=== PATIENT | male | born 1965 | race Caucasian/White ===

== ENCOUNTER 2018-10-07 13:28 | Emergency (ER) | payer OTHER ==
--- NOTE | 2018-10-07 14:19 | EDPHY ---
HPI/HX/ROS/PE/MDM Narrative: CHIEF COMPLAINT: "I fell on a rock, hit the ear." HPI: The patient is a 53 y/o male with a history of pre-diabetes and high cholesterol arriving with his son complaining of ear bleeding secondary to a fall while hiking today around 12:30. He slipped on the trail and reached out to catch himself with his hands, but also struck his left ear on a "flat rock." He had immediate bleeding and mild ear soreness, but denies other injuries. He denies LOC, head or neck pain, dizziness, weakness, paresthesias, aphasia, ear ringing, or other symptoms. He was able to hike down the rest of the trail over the next hour without issue and went to urgent care for evaluation, who referred him here. He is not on anticoagulants. His tetanus vaccination is up-to -date. REVIEW OF SYSTEMS: Aside from elements discussed in the HPI, a comprehensive 10-point review of systems was reviewed and is negative. PMH: Pre-diabetes - Metformin; hypercholesterolemia - statin SOCIAL HISTORY: Son at bedside. Visiting from [place], [place]. PHYSICAL EXAM: General:Patient is alert, in no acute distress. ENT:Eyes are normal to inspection. Left ear: complex, irregular superficial laceration to inner portion of mario of auricle is present. Not through and through. does not appear to involve cartilage. TM intact and clear. ENT inspection otherwise normal. Neck: Normal inspection. Full range of motion. Respiratory:No respiratory distress. Breath sounds normal bilaterally. Cardiovascular: Regular rate and rhythm. Strong peripheral pulses. Normal cap refill. Abdomen:The abdomen is nontender to palpation. There are no peritoneal signs. Back: Normal to inspection. No tenderness to palpation. Skin: Normal color. No rash. Warm and dry. Extremities: Normal appearance. Full range of motion. Neuro: Oriented x3. Normal motor function. Normal sensory function. ED Course: This is a 53 y/o male not on anticoagulants who presents with an isolated laceration to the inner portion of his left auricle secondary to a mechanical slip and fall today. He has a normal neuro exam and no other trauma. His left TM is intact and clear. Do not suspect basilar skull fracture. Plan for wound care and laceration repair with Dermabond. Procedure: Laceration repair. Verbal consent was obtained from the patient. The irregular 1cm laceration on the mario of the left auricle was anesthetized using topical anesthetic. The wound was cleaned with standard ED protocol. There were no deep structures involved. The wound was repaired with Dermabond. The wound repair was simple. The procedure was performed by myself, Dr. Aflredo. Patient will be discharged with standard laceration care and follow up instructions. Return precautions discussed. MDM: This patient presents essentially with laceration to ear. The laceration itself is quite irregular and located deep in the hollow of the mario, making repair via suture very difficult. I offered patient a choice of suture repair vs. dermabond repair and he has chosen the latter, which seems reasonable. We discussed risks of infection, recurrent bleeding, as well as strict return precautions and need for close monitoring of wound. I see no indication for imaging at this time, and patient has no signs of temporal bone or basilar skull fracture. At time of discharge, laceration is well-approximated and no active bleeding is seen. General Time Seen by Provider: 10/07/18 13:40 Initial Vital Signs: Initial Vital Signs Temperature (C) 36.7 C 10/07/18 13:32 Heart Rate 107 H 10/07/18 13:32 Respiratory Rate 16 10/07/18 13:32 Blood Pressure 140/88 H 10/07/18 13:32 O2 Sat (%) 94 10/07/18 13:32 O2 Delivery Mode Room Air Allergies/Adverse Reactions: Penicillins Allergy (Verified 10/07/18 13:38) bee stings Allergy (Uncoded 10/07/18 13:38) Home Medications: Medication Instructions Recorded Atorvastatin Calcium 10/07/18 Lisinopril 10/07/18 Metformin HCl 10/07/18 Departure - Departure Disposition: Home, Routine, Self-Care Clinical Impression: Laceration of ear Qualifiers: Encounter type: initial encounter Laterality: left Qualified Code(s): S01.312A - Laceration without foreign body of left ear, initial encounter Condition: Good Instructions: Laceration (ED) Additional Instructions: 1. Keep site clean and dry. Do not apply Neosporin as this will dissolve glue. Do not scrub off glue, it will naturally dissolve over the next week. 2. If bleeding returns, apply direct pressure for 15 minutes. 3. Follow up with your primary care provider as needed. 4. Return to the ED for severe headache, weakness, numbness, vision changes, speech difficulty, fever, significant increase in redness or pus drainage at the site, or other worsening of condition. Referrals: Jackson Cooper MD [Medical Doctor] - As per Instructions Report Scribed for: Estuardo Alfredo Report Scribed by: Alexandra Day Date of Report: 10/07/18 Time of Report: 14:19 Physician Review and Approval Statement: Portions of this note were transcribed by an ED scribe. I personally performed the history, physical exam, and medical decision making; and confirm the accuracy of the information in the transcribed note.
[2018-10-07] MEDS ORDERED: SKIN ADHESIVE (DERMABOND) 1 EACH TP ONE (14:43)
[2018-10-07 15:19] VITALS: BP 138/79
== END 2018-10-07 15:19 | disposition home or self-care (01) ==
PROC: 09Q1XZZ Repair Left External Ear, External Approach (ICD-10-PCS; principal; 2018-10-07)
DX: S01.312A Laceration without foreign body of left ear, initial encounter (principal); R73.03 Prediabetes; E78.00 Pure hypercholesterolemia, unspecified; Z79.899 Other long term (current) drug therapy; W01.198A Fall on same level from slipping, tripping and stumbling with subsequent striking against other object, initial encounter; Y93.01 Activity, walking, marching and hiking; Y92.828 Other wilderness area as the place of occurrence of the external cause